=== PATIENT | female | born 1985 | race African-American/Black ===

== ENCOUNTER 2016-08-13 13:28 | Emergency (ER) | payer OTHER ==
[~2016-08-13] VITALS: Ht 167.6 cm; Wt 72.6 kg
[~2016-08-13 13:28] MED LIST: AUGMENTIN 875-875 MG PO; CLARITIN10 MG PO; FLONASE ALLERG9.9 ML NS; MOTRIN800 MG PO; NEURONTIN400 MG PO; PERCOCET 325 MG1 TA3 PO; PERCOCET 325 MG1 TA6 PO; PREDNISONE10 MG PO; ZYRTEC10 M3 PO
[2016-08-13 13:51] VITALS: BP 126/74
[2016-08-13] MEDS ORDERED: ULTRAM50 MG PO (15:01)
== END 2016-08-13 15:20 | disposition home or self-care (01) ==
LOC: ED 13:28
DX: M25.471 Effusion, right ankle (principal); F17.200 Nicotine dependence, unspecified, uncomplicated; G43.909 Migraine, unspecified, not intractable, without status migrainosus; Z88.6 Allergy status to analgesic agent

== ENCOUNTER 2017-03-19 02:36 | Emergency (ER) | payer OTHER ==
[~2017-03-19] VITALS: Ht 167.6 cm; Wt 73.5 kg
[~2017-03-19 02:36] MED LIST changes: +ULTRAM50 MG PO
[2017-03-19 02:42] VITALS: BP 135/91
[2017-03-19] MEDS ORDERED: KENALOG 0.1%80 GM T (03:01)
[2017-03-19] MEDS ORDERED: DIPHENHYDRAMINE50 M1 PO (03:01)
== END 2017-03-19 03:24 | disposition home or self-care (01) ==
LOC: ED 02:36
DX: S40.861A Insect bite (nonvenomous) of right upper arm, initial encounter (principal); S50.861A Insect bite (nonvenomous) of right forearm, initial encounter; S60.561A Insect bite (nonvenomous) of right hand, initial encounter; Z88.6 Allergy status to analgesic agent; W57.XXXA Bitten or stung by nonvenomous insect and other nonvenomous arthropods, initial encounter; Y93.9 Activity, unspecified; Y92.9 Unspecified place or not applicable; Y99.9 Unspecified external cause status

== ENCOUNTER 2018-06-18 10:03 | Emergency (ER) | payer OTHER ==
[~2018-06-18] VITALS: Ht 167.6 cm; Wt 80.7 kg
[~2018-06-18 10:03] MED LIST changes: +DIPHENHYDRAMINE50 M1 PO; +KENALOG 0.1%80 GM T
[2018-06-18 10:06] VITALS: BP 114/76
[2018-06-18] MEDS ORDERED: ROBAXIN500 M1 PO (12:02)
== END 2018-06-18 12:08 | disposition home or self-care (01) ==
LOC: ED 10:03
DX: S16.1XXA Strain of muscle, fascia and tendon at neck level, initial encounter (principal); S80.01XA Contusion of right knee, initial encounter; F17.200 Nicotine dependence, unspecified, uncomplicated; Z88.6 Allergy status to analgesic agent; V89.2XXA Person injured in unspecified motor-vehicle accident, traffic, initial encounter; Y93.89 Activity, other specified; Y92.89 Other specified places as the place of occurrence of the external cause; Y99.8 Other external cause status

== ENCOUNTER → 2019-06-02 | Outpatient (CLI) | payer OTHER ==
[~2019-06-02] MED LIST changes: +ROBAXIN500 M1 PO
[2019-06-02 13:16] LABS: BASO # 0.1 10*3/uL (0.0-0.1); BASO % 0.4 % (0.0-1.0); EOS # 0.2 10*3/uL (0.0-0.4); EOS % 1.4 % (1.0-4.0); HEMATOCRIT 41.2 % (37.0-47.0); HEMOGLOBIN 13.3 g/dl (12.0-16.0); LYMPH # 2.3 10*3/uL (1.3-4.4); LYMPH % 16.4 % (27.0-41.0); MEAN CELL VOLUME 98.3 fl (81.0-99.0); MEAN CORPUSCULAR HGB 31.7 pg (27.0-31.0); MEAN CORPUSCULAR HGB CONC 32.3 g/dl (33.0-37.0); MONO # 0.6 10*3/uL (0.1-1.0); MONO % 4.5 % (3.0-9.0); NEUT # 10.7 10*3/uL (2.3-7.9); NEUT % 76.9 % (47.0-73.0); PLATELET COUNT AUTOMATED 308 10*3/uL (130-400); RED BLOOD COUNT 4.19 10*6/uL (4.10-5.10); RED CELL DISTRI WIDTH 13.6 % (0-14.5); WHITE BLOOD COUNT 13.9 10*3/uL (4.8-10.8)
[2019-06-02 13:41] LABS: ALBUMIN 3.5 gm/dl (3.1-4.5); ALKALINE PHOSPHATASE 69 U/L (45-117); BUN 13 mg/dl (7-24); CHLORIDE 110 mmol/L (98-107); CHOLESTEROL 134 mg/dL (<200); CREATININE 0.85 mg/dL (0.55-1.02); HDL CHOLESTEROL 36 mg/dl (40-60); LDL CHOLESTEROL 79 mg/dL (9-159); POTASSIUM 4.3 mmol/L (3.5-5.1); SGOT/AST 5 IU/L (3-35); SGPT/ALT 11 U/L (12-78); SODIUM 141 mmol/L (136-145); TOTAL PROTEIN 6.7 gm/dL (6.4-8.2); TRIGLYCERIDES 97 mg/dl (<150); VLDL CHOLESTEROL 19 mg/dL (6-40)
[2019-06-02 13:47] LABS: THYROID STIM HORMONE (HS) 0.314 uIU/ml (0.358-4.75)
== END | disposition home or self-care (01) ==
LOC: LAB 12:24
PROVIDERS: Internal Medicine
DX: E03.9 Hypothyroidism, unspecified (principal); I10 Essential (primary) hypertension; E78.5 Hyperlipidemia, unspecified; D51.1 Vitamin B12 deficiency anemia due to selective vitamin B12 malabsorption with proteinuria; E55.9 Vitamin D deficiency, unspecified

== ENCOUNTER 2021-01-26 16:05 | Emergency (ER) | payer SELFPAY ==
[~2021-01-26] VITALS: Ht 167.6 cm; Wt 72.6 kg
[2021-01-26 16:20] VITALS: BP 137/86
[2021-01-26 16:44] LABS: BILIRUBIN Negative (Negative); BLOOD Trace-Intact (Negative); CLARITY Clear (Clear); COLOR Yellow (Yellow); GLUCOSE Negative (Negative); KETONE Trace (Negative); LEUKO ESTERASE 2+ (Negative); NITRITE Negative (Negative); SPECIFIC GRAVITY 1.025 (1.001-1.030)
[2021-01-26 17:11] LABS: EPITHELIAL CELLS 16-20; MUCOUS 2+; WBC 21-30 wbc/hpf (0-5)
[2021-01-26] MEDS ORDERED: FLAGYL500 MG PO (17:35)
[2021-01-26] MEDS ORDERED: DOXYCYCLINE100 M3 PO (17:35)
== END 2021-01-26 18:21 | disposition home or self-care (01) ==
LOC: ED 16:05
PROVIDERS: Family Medicine
DX: A59.01 Trichomonal vulvovaginitis (principal); Z20.2 Contact with and (suspected) exposure to infections with a predominantly sexual mode of transmission; Z88.8 Allergy status to other drugs, medicaments and biological substances

== ENCOUNTER 2021-08-15 14:08 | Emergency (ER) | payer SELFPAY ==
[~2021-08-15 14:08] MED LIST changes: +DOXYCYCLINE100 M3 PO; +FLAGYL500 MG PO
[2021-08-15 14:13] VITALS: BP 117/95
[2021-08-15 14:42] LABS: BASO % 0.3 % (0.0-1.0); EOS # 0.3 10*3/uL (0.0-0.4); EOS % 2.7 % (1.0-4.0); HEMATOCRIT 38.6 % (37.0-47.0); LYMPH # 1.9 10*3/uL (1.3-4.4); LYMPH % 15.6 % (27.0-41.0); MEAN CORPUSCULAR HGB 31.6 pg (27.0-31.0); MEAN CORPUSCULAR HGB CONC 32.9 g/dl (33.0-37.0); MEAN PLATELET VOLUME 9.5 fl (9.6-12.3); MONO # 0.5 10*3/uL (0.1-1.0); MONO % 4.3 % (3.0-9.0); NEUT # 9.1 10*3/uL (2.3-7.9); NEUT % 76.8 % (47.0-73.0); PLATELET COUNT AUTOMATED 299 10*3/uL (130-400); RED BLOOD COUNT 4.02 10*6/uL (4.10-5.10); RED CELL DISTRI WIDTH 13.9 % (0-14.5); WHITE BLOOD COUNT 11.9 10*3/uL (4.8-10.8)
[2021-08-15 14:53] LABS: BILIRUBIN 1+ (Negative); BLOOD 3+ (Negative); CLARITY Turbid (Clear); COLOR Orange (Yellow); GLUCOSE Negative (Negative); KETONE 1+ (Negative); LEUKO ESTERASE 1+ (Negative); NITRITE Negative (Negative); UROBILINOGEN 0.2 E.U./dl (0.0-1.0)
[2021-08-15 14:57] LABS: ALBUMIN 3.5 gm/dl (3.1-4.5); ALKALINE PHOSPHATASE 69 U/L (45-117); BUN 11 mg/dl (7-24); CHLORIDE 114 mmol/L (98-107); CREATININE 0.82 mg/dL (0.55-1.02); LIPASE 100 U/L (73-393); POTASSIUM 3.8 mmol/L (3.5-5.1); SGOT/AST 11 IU/L (3-35); SGPT/ALT 17 U/L (12-78); SODIUM 142 mmol/L (136-145); TOTAL PROTEIN 6.8 gm/dL (6.4-8.2)
[2021-08-15 14:59] LABS: BACTERIA 2+; MUCOUS TRACE; RBC TNTC rbc/hpf (0-2)
== END 2021-08-15 17:27 | disposition home or self-care (01) ==
LOC: ED 14:08
PROVIDERS: Emergency Medicine
DX: R10.31 Right lower quadrant pain (principal); G43.909 Migraine, unspecified, not intractable, without status migrainosus; Z88.6 Allergy status to analgesic agent

== ENCOUNTER 2022-06-23 10:50 | Emergency (ER) | payer OTHER ==
[~2022-06-23] VITALS: Ht 167.6 cm; Wt 77.1 kg
[2022-06-23 10:58] VITALS: BP 134/88
[2022-06-23] MEDS ORDERED: AMOXICILLIN500 M3 PO (11:12)
== END 2022-06-23 12:32 | disposition home or self-care (01) ==
LOC: ED 10:50
DX: J32.8 Other chronic sinusitis (principal); Z20.822 Contact with and (suspected) exposure to COVID-19; B34.9 Viral infection, unspecified; Z88.6 Allergy status to analgesic agent

== ENCOUNTER 2022-11-22 22:39 | Emergency (ER) | payer SELFPAY ==
[~2022-11-22] VITALS: Ht 167.6 cm; Wt 70.8 kg
[~2022-11-22 22:39] MED LIST changes: +AMOXICILLIN500 M3 PO
[2022-11-22 22:43] VITALS: BP 136/84
[2022-11-22] MEDS ORDERED: TRAZODONE50 MG PO (22:46)
[2022-11-22] MEDS ORDERED: PERCOCET 7.5-31 EACH PO (22:46)
[2022-11-22] MEDS ORDERED: LISINOPRIL10 M1 PO (22:46)
[2022-11-22] MEDS ORDERED: VIBRA-TAB100 MG PO (22:58)
== END 2022-11-22 23:20 | disposition home or self-care (01) ==
LOC: ED 22:39
DX: S51.831A Puncture wound without foreign body of right forearm, initial encounter (principal); F41.9 Anxiety disorder, unspecified; Z88.6 Allergy status to analgesic agent; W54.0XXA Bitten by dog, initial encounter; Y93.89 Activity, other specified; Y92.89 Other specified places as the place of occurrence of the external cause; Y99.8 Other external cause status

== ENCOUNTER 2023-01-31 07:43 | Emergency (ER) | payer SELFPAY ==
[~2023-01-31] VITALS: Ht 167.6 cm; Wt 71.7 kg
[~2023-01-31 07:43] MED LIST changes: +LISINOPRIL10 M1 PO; +PERCOCET 7.5-31 EACH PO; +TRAZODONE50 MG PO; +VIBRA-TAB100 MG PO
[2023-01-31 07:59] VITALS: BP 140/93
[2023-01-31 08:32] LABS: BASO # 0.1 10*3/uL (0.0-0.1); BASO % 0.4 % (0.0-1.0); EOS # 0.6 10*3/uL (0.0-0.4); EOS % 4.8 % (1.0-4.0); HEMATOCRIT 41.1 % (37.0-47.0); LYMPH # 3.4 10*3/uL (1.3-4.4); LYMPH % 28.4 % (27.0-41.0); MEAN CELL VOLUME 97.6 fl (81.0-99.0); MEAN CORPUSCULAR HGB 31.6 pg (27.0-31.0); MEAN CORPUSCULAR HGB CONC 32.4 g/dl (33.0-37.0); MEAN PLATELET VOLUME 9.2 fl (9.6-12.3); MONO # 0.5 10*3/uL (0.1-1.0); MONO % 4.5 % (3.0-9.0); NEUT # 7.5 10*3/uL (2.3-7.9); NEUT % 61.5 % (47.0-73.0); PLATELET COUNT AUTOMATED 358 10*3/uL (130-400); RED BLOOD COUNT 4.21 10*6/uL (4.10-5.10); RED CELL DISTRI WIDTH 13.4 % (0-14.5); WHITE BLOOD COUNT 12.1 10*3/uL (4.8-10.8)
[2023-01-31 08:47] LABS: ACT PARTIAL THROMBO TIME 28.9 SECONDS (20.0-32.1); INTERNATIONAL NORM RATIO 0.9 (2.0-3.5)
[2023-01-31 08:57] LABS: BILIRUBIN Negative (Negative); BLOOD Trace-Intact (Negative); CLARITY Clear (Clear); COLOR Yellow (Yellow); GLUCOSE Negative (Negative); KETONE Negative (Negative); LEUKO ESTERASE Negative (Negative); NITRITE Negative (Negative); PH 5.5 (4.5-8.0)
[2023-01-31 08:59] LABS: ALKALINE PHOSPHATASE 81 U/L (46-116); BUN 12 mg/dl (9-23); CHLORIDE 104 mmol/L (98-107); POTASSIUM 4.2 mmol/L (3.4-5.1); SGPT/ALT 18 U/L (10-49); TOTAL PROTEIN 7.2 gm/dL (6.0-8.0)
[2023-01-31 09:12] LABS: URINE AMPHETAMINES Negative (1000ng/ml); URINE BARBITURATES Negative (200ng/ml); URINE BENZODIAZEPINES Negative (200ng/ml); URINE CANNABINOIDS (THC) Positive (50ng/ml); URINE COCAINE Positive (300ng/ml); URINE METHADONE Negative (300ng/ml); URINE OPIATES Negative (300ng/ml); URINE PHENCYCLIDINE Negative (25ng/ml)
[2023-01-31 09:31] LABS: RBC 0-2 rbc/hpf (0-2)
== END 2023-01-31 10:32 | disposition home or self-care (01) ==
LOC: ED 07:43
PROVIDERS: Emergency Medicine
DX: F14.10 Cocaine abuse, uncomplicated (principal); R07.89 Other chest pain; Z88.6 Allergy status to analgesic agent; Z79.2 Long term (current) use of antibiotics; Z79.899 Other long term (current) drug therapy

== ENCOUNTER 2023-05-14 21:56 | Emergency (ER) | payer SELFPAY ==
[~2023-05-14] VITALS: Ht 167.6 cm; Wt 72.6 kg
[~2023-05-14 21:56] MED LIST changes: +POLYMYXIN B/TRI10 M1 OPH
[2023-05-14 22:03] VITALS: BP 138/88
== END 2023-05-14 23:39 | disposition left against medical advice (07) ==
LOC: ED 21:56
DX: H10.9 Unspecified conjunctivitis (principal); Z88.6 Allergy status to analgesic agent; Z53.21 Procedure and treatment not carried out due to patient leaving prior to being seen by health care provider